=== PATIENT | female | born 1975 | race Hispanic/Latino ===

== ENCOUNTER 2017-10-13 15:24 | Inpatient (IN) | payer OTHER ==
[~2017-10-13] VITALS: Ht 162.6 cm; Wt 74.5 kg
[~2017-10-13 15:24] MED LIST: ADVAIR 100-501 EACH IH; ADVAIR 250/501 DISK IH; ADVAIR 500/501 DISK IH; ALBUTEROL17 GM IH; ALBUTEROL2.5 MG/3 M IH; ASPIR 8181 M1 PO; ATARAX,VISTARIL25 MG PO; AUGMENTIN875 MG PO; AZITHROMYCIN500 MG PO; Advair HFA 115/21 IH; Amoxicillin PO; CEFTIN500 MG PO; CELEXA10 M1 PO; CENTRUM SILVER1 EAC4 PO; CIPRO500 MG PO; CLARITIN,ALAVAR10 MG PO; CLARITIN-D 21 TABLET PO; CLARITIN10 MG PO; Claritin PO; Claritin,Alavart PO; DELTASONE10 MG PO; ENDOCET 5-3251 EACH PO; FLEXERIL10 MG PO; FLONASE16 G1 BOTH NARES; FLONASE16 G1 IH; FLOVENT 11120 INHALA IH; GARCINIA CAMBO1 EACH PO; HYDROXYZINE HCL25 MG PO; IBUPROFEN800 MG PO; LEVAQUIN500 MG PO; LEVOFLOXACIN750 MG PO; LORATADINE10 M2 PO; MONTELUKAST SOD10 MG PO; MOTRIN800 MG PO; PERCOCET 5/31 TABLET PO; PREDNISONE10 MG PO; PRENATAL TABLE1 EAC3 PO; PROAIR HFA8.5 GM IH; PROVENTIL HFA6.7 GM IH; PROVENTIL,2.5 MG/0.5 IH; PROVENTIL,2.5 MG/3 M IH; Proair HFA IH; Proventil,Ventolin H IH; Robitussin AC,Tussi- PO; SINGULAIR10 MG PO; SPIRIVA1 INHALATI IH; SYMBICORT60 INHALAT IH; Singulair PO; TYLENOL EXTRA500 MG PO; Tylenol Regular Stre PO; ULTRAM50 MG PO; VICODIN,LORT1 TABLET PO; ZITHROMAX Z-PA250 MG PO; ZITHROMAX250 MG PO; Zithromax PO; predniSONE PO
[2017-10-13 16:18] LABS: BASOPHIL (%) 0.4 % (0-1); BASOPHIL COUNT 0.1 K/uL (0-0.1); EOSINOPHIL (%) 5.4 % (0-5); EOSINOPHIL COUNT 0.8 K/uL (0-0.3); HEMATOCRIT 38.9 % (36.0-46.0); HEMOGLOBIN 13.1 G/DL (11.9-15.5); IMMATURE GRANULOCYTE (%) 0.4 % (0.0-0.7); LYMPHOCYTE (%) 12.4 % (15-42); LYMPHOCYTE COUNT 1.7 K/uL (1.0-2.8); MCHC 33.7 G/DL (30.0-36.0); MCV 89.2 FL (83-99); MONOCYTE (%) 2.8 % (3-12); MONOCYTE COUNT 0.4 K/uL (0-0.8); NEUTROPHIL (%) 78.6 % (45-76); NEUTROPHIL COUNT 10.9 K/uL (1.8-6.4); PLATELET COUNT 209 K/uL (156-360); RBC DIS.WIDTH-CV 13.2 % (11.8-14.6); RBC DIS.WIDTH-SD 43.7 % (39-53); RED BLOOD COUNT 4.36 M/uL (3.80-5.20); WHITE BLOOD COUNT 13.8 K/uL (4.1-10.2)
[2017-10-13 16:26] LABS: ALBUMIN 4.1 g/dL (3.2-4.8); CHLORIDE 107 mEq/L (99-109); POTASSIUM 3.5 mEq/L (3.7-5.4); SODIUM 141 mEq/L (136-147)
[2017-10-13 16:29] LABS: GLUCOSE 91 mg/dL (70-99); TOTAL PROTEIN 7.5 g/dL (6.4-8.3)
[2017-10-13 16:31] LABS: TOTAL BILIRUBIN 0.4 mg/dL (0.0-1.0)
[2017-10-13 16:32] LABS: ALKALINE PHOSPHATASE 50 IU/L (3-129); CREATININE 0.8 mg/dL (0.6-1.3); GFR ESTIMATE (CALCULATED) > 59 mL/min/
[2017-10-13 16:33] LABS: UREA NITROGEN (BUN) 9 mg/dL (9-23)
[2017-10-13 16:34] LABS: AST (GOT) 17 IU/L (2-34)
[2017-10-13 16:35] LABS: ALT (GPT) 10 IU/L (3-49)
[2017-10-13 16:41] LABS: QUANTITATIVE HCG < 4.0 MIU/ML
[2017-10-13] MEDS ORDERED: ALBUTEROL2.5 MG/3 M IH (18:25)
[2017-10-13 19:14] LABS: BASE EXCESS -2.4 mEq/L (-3 to +3); BICARBONATE 21.6 mEq/L (22-26); CARBOXY HGB 2.4 % (0-5); METHEMOGLOBIN 1.8 % (0-1.5); PO2 71 mm Hg (80-100); pH 7.41 (7.35-7.45)
[2017-10-13 19:15] LABS: COMMENTS - BLOOD GASES C+; DEVICE NC; O2 FLOW 6 L/MIN; PCO2 34 mm Hg (35-45); SITE RB
[2017-10-13 22:11] VITALS: BP 127/76
[2017-10-14 03:59] VITALS: BP 127/70
[2017-10-14 06:29] LABS: CHLORIDE 106 MEQ/L (99-109); CREATININE 0.7 MG/DL (0.6-1.3); GFR ESTIMATE (CALCULATED) > 59 mL/min/; GLUCOSE 173 mg/dL (70-99); POTASSIUM 3.8 MEQ/L (3.7-5.4); SODIUM 137 MEQ/L (136-147); UREA NITROGEN (BUN) 10 mg/dL (9-23)
[2017-10-14 07:30] VITALS: BP 126/70
[2017-10-14 11:10] VITALS: BP 116/60
[2017-10-14 15:17] VITALS: BP 118/81
[2017-10-14 19:32] VITALS: BP 127/76
[2017-10-14 23:20] VITALS: BP 113/66
[2017-10-15 03:28] VITALS: BP 120/68
[2017-10-15 07:11] LABS: BASOPHIL (%) 0.1 % (0-1); EOSINOPHIL (%) 0 % (0-5); HEMATOCRIT 34.9 % (36.0-46.0); HEMOGLOBIN 11.9 G/DL (11.9-15.5); IMMATURE GRANULOCYTE (%) 1.4 % (0.0-0.7); LYMPHOCYTE (%) 4.6 % (15-42); MCH 30.5 PG (29.0-34.0); MCHC 34.1 G/DL (30.0-36.0); MCV 89.5 FL (83-99); MONOCYTE (%) 3.9 % (3-12); MONOCYTE COUNT 0.8 K/uL (0-0.8); NEUTROPHIL COUNT 19.3 K/uL (1.8-6.4); PLATELET COUNT 223 K/uL (156-360); RBC DIS.WIDTH-CV 14.1 % (11.8-14.6); RBC DIS.WIDTH-SD 46.3 % (39-53); WHITE BLOOD COUNT 21.4 K/uL (4.1-10.2)
[2017-10-15 07:37] LABS: CHLORIDE 107 MEQ/L (99-109); CREATININE 0.7 MG/DL (0.6-1.3); GFR ESTIMATE (CALCULATED) > 59 mL/min/; GLUCOSE 132 mg/dL (70-99); POTASSIUM 4.2 MEQ/L (3.7-5.4); SODIUM 139 MEQ/L (136-147); UREA NITROGEN (BUN) 11 mg/dL (9-23)
[2017-10-15 08:00] VITALS: BP 113/71
[2017-10-15 16:00] VITALS: BP 131/58
[2017-10-15 19:36] VITALS: BP 125/73
[2017-10-15 23:22] VITALS: BP 131/68
[2017-10-16 07:18] LABS: BASOPHIL (%) 0.1 % (0-1); EOSINOPHIL (%) 0 % (0-5); HEMATOCRIT 33.8 % (36.0-46.0); HEMOGLOBIN 11.2 G/DL (11.9-15.5); IMMATURE GRANULOCYTE (%) 1.9 % (0.0-0.7); LYMPHOCYTE (%) 8.8 % (15-42); LYMPHOCYTE COUNT 1.3 K/uL (1.0-2.8); MCH 29.7 PG (29.0-34.0); MCHC 33.1 G/DL (30.0-36.0); MCV 89.7 FL (83-99); MONOCYTE (%) 3.2 % (3-12); MONOCYTE COUNT 0.5 K/uL (0-0.8); NEUTROPHIL COUNT 12.5 K/uL (1.8-6.4); PLATELET COUNT 222 K/uL (156-360); RBC DIS.WIDTH-CV 14.2 % (11.8-14.6); RBC DIS.WIDTH-SD 47.2 % (39-53); RED BLOOD COUNT 3.77 M/uL (3.80-5.20); WHITE BLOOD COUNT 14.6 K/uL (4.1-10.2)
[2017-10-16 07:43] LABS: CHLORIDE 109 MEQ/L (99-109); CREATININE 0.6 MG/DL (0.6-1.3); GFR ESTIMATE (CALCULATED) > 59 mL/min/; GLUCOSE 136 mg/dL (70-99); POTASSIUM 4.1 MEQ/L (3.7-5.4); SODIUM 140 MEQ/L (136-147); UREA NITROGEN (BUN) 12 mg/dL (9-23)
[2017-10-16 08:00] VITALS: BP 142/84
[2017-10-16] MEDS ORDERED: ADVAIR HFA120 INHALA IH (09:46)
[2017-10-16] MEDS ORDERED: PREDNISONE20 MG PO (09:46)
[2017-10-16] MEDS ORDERED: INCRUSE ELLI62.5 MCG IH (09:47)
[2017-10-16] MEDS ORDERED: AIRDUO RESPICL1 EAC1 IH (13:19)
[2017-10-16] MEDS ORDERED: SPIRIVA RESPIMAT4 G1 IH (13:20)
[2017-10-16 16:00] VITALS: BP 145/72
[2017-10-16 23:50] VITALS: BP 144/79
[2017-10-17 06:43] LABS: BASOPHIL (%) 0.2 % (0-1); EOSINOPHIL (%) 0.1 % (0-5); HEMATOCRIT 33.2 % (36.0-46.0); HEMOGLOBIN 11.3 G/DL (11.9-15.5); IMMATURE GRANULOCYTE (%) 1.9 % (0.0-0.7); LYMPHOCYTE (%) 24.4 % (15-42); LYMPHOCYTE COUNT 2.8 K/uL (1.0-2.8); MCH 30.5 PG (29.0-34.0); MCV 89.7 FL (83-99); MONOCYTE COUNT 0.7 K/uL (0-0.8); NEUTROPHIL (%) 67.4 % (45-76); NEUTROPHIL COUNT 7.6 K/uL (1.8-6.4); PLATELET COUNT 241 K/uL (156-360); RBC DIS.WIDTH-SD 46.2 % (39-53); WHITE BLOOD COUNT 11.3 K/uL (4.1-10.2)
[2017-10-17 07:16] LABS: CHLORIDE 106 MEQ/L (99-109); CREATININE 0.7 MG/DL (0.6-1.3); GFR ESTIMATE (CALCULATED) > 59 mL/min/; GLUCOSE 122 mg/dL (70-99); POTASSIUM 3.5 MEQ/L (3.7-5.4); SODIUM 140 MEQ/L (136-147); UREA NITROGEN (BUN) 14 mg/dL (9-23)
[2017-10-17 08:26] VITALS: BP 135/87
[2017-10-17] MEDS ORDERED: ALBUTEROL2.5 MG/0.5 AEROSOL (09:21)
== END 2017-10-17 11:45 | disposition home or self-care (01) | DRG 202 ==
LOC: EME 15:24 → EDOF 20:03 → 2EAST 20:03 → ENRESERV 20:12 → 2EAST 21:51 → ENPENDDIS 10-17 → 2EAST 10-17 11:45
PROVIDERS: Emergency Medicine; Hospitalist; Internal Medicine
DX: J45.41 Moderate persistent asthma with (acute) exacerbation (principal); J96.01 Acute respiratory failure with hypoxia; E87.6 Hypokalemia; G89.29 Other chronic pain; M54.5 Low back pain; G43.909 Migraine, unspecified, not intractable, without status migrainosus; F17.210 Nicotine dependence, cigarettes, uncomplicated; Z88.1 Allergy status to other antibiotic agents
CPT/HCPCS: 36600; 71045; 71275; 80048; 80053; 82803; 84702; 85025; 87502; 94640; 94640 76; 94644; 94760; 94799; 99202; 99281; 99285; J0696; J1100; J2930; J3475; J7030; J7512; J7644

== ENCOUNTER 2018-04-30 09:19 | Emergency (ER) | payer OTHER ==
[~2018-04-30] VITALS: Ht 162.6 cm; Wt 78.6 kg
[~2018-04-30 09:19] MED LIST changes: +ADVAIR HFA120 INHALA IH; +AIRDUO RESPICL1 EAC1 IH; +ALBUTEROL2.5 MG/0.5 AEROSOL; +INCRUSE ELLI62.5 MCG IH; +PREDNISONE20 MG PO; +SPIRIVA RESPIMAT4 G1 IH
[2018-04-30 09:43] LABS: HEMATOCRIT 38.7 % (36.0-46.0); HEMOGLOBIN 13.4 G/DL (11.9-15.5); MCH 30.6 PG (29.0-34.0); MCHC 34.6 G/DL (30.0-36.0); MCV 88.4 FL (83-99); RBC DIS.WIDTH-CV 13.1 % (11.8-14.6); RBC DIS.WIDTH-SD 42.7 % (39-53); RED BLOOD COUNT 4.38 M/uL (3.80-5.20); WHITE BLOOD COUNT 17.1 K/uL (4.1-10.2)
[2018-04-30 09:48] LABS: CHLORIDE 106 mEq/L (99-109); POTASSIUM 3.8 mEq/L (3.7-5.4); SODIUM 137 mEq/L (136-147)
[2018-04-30 09:50] LABS: GLUCOSE 110 mg/dL (70-99)
[2018-04-30 09:54] LABS: CREATININE 0.8 mg/dL (0.6-1.3); GFR ESTIMATE (CALCULATED) > 59 mL/min/; UREA NITROGEN (BUN) 9 mg/dL (9-23)
[2018-04-30 10:21] LABS: PLAT.SUFFICIENCY ADEQUATE; PLATELET COUNT 208 K/uL (156-360)
[2018-04-30 14:30] VITALS: BP 113/60
[2018-04-30] MEDS ORDERED: PREDNISONE50 MG PO (14:48)
[2018-04-30] MEDS ORDERED: VENTOLIN HFA18 GM IH (14:49)
== END 2018-04-30 17:26 | disposition home or self-care (01) ==
LOC: EME 09:19
PROVIDERS: Family Medicine
DX: J45.901 Unspecified asthma with (acute) exacerbation (principal); F31.9 Bipolar disorder, unspecified; F32.9 Major depressive disorder, single episode, unspecified; F41.9 Anxiety disorder, unspecified; F17.200 Nicotine dependence, unspecified, uncomplicated; Z88.1 Allergy status to other antibiotic agents
CPT/HCPCS: 80048; 85027; 87502; 94640; 94799; 99281; 99284; J2930